=== PATIENT | male | born 2000 | race Caucasian/White ===

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

== ENCOUNTER 2019-03-05 07:10 | Emergency (ER) | payer MEDICAID ==
[2019-03-05 07:41] VITALS: BP 123/71
[2019-03-05] MEDS ORDERED: FLUCONAZOLE 100 MG TABLET PO STA (07:57)
[2019-03-05] MEDS ORDERED: IBUPROFEN 600 MG TABLET PO STA (07:57)
[2019-03-05] MEDS ORDERED: DOXYCYCLINE 100 MG TABLET PO STA (07:57)
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
== END 2019-03-05 08:34 | disposition home or self-care (01) ==
LOC: ED 07:10
DX: L02.211 Cutaneous abscess of abdominal wall (principal); B35.3 Tinea pedis; M79.671 Pain in right foot; M79.672 Pain in left foot; F17.200 Nicotine dependence, unspecified, uncomplicated
CPT/HCPCS: 99283; A9270

== ENCOUNTER 2019-04-21 21:12 | Emergency (ER) | payer MEDICAID ==
[2019-04-21 21:23] VITALS: BP 120/71
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
== END 2019-04-21 21:59 | disposition home or self-care (01) ==
LOC: ED 21:12
DX: S01.111A Laceration without foreign body of right eyelid and periocular area, initial encounter (principal); W50.0XXA Accidental hit or strike by another person, initial encounter; Y93.75 Activity, martial arts; F17.200 Nicotine dependence, unspecified, uncomplicated
CPT/HCPCS: 12013; 99282

== ENCOUNTER 2019-06-11 11:53 | Emergency (ER) | payer MEDICAID ==
[2019-06-11 12:03] VITALS: BP 142/78
--- NOTE | 2019-06-11 12:30 | ED Physician Documentation ---
PD HPI DYSPNEA - Stated complaint Stated Complaint: SOA/L SIDE PAIN - Chief complaint Chief Complaint: Resp - History obtained from History obtained from: Patient (This is a healthy 19-year-old gentleman who smokes cigarettes. He was shoveling and mid shovel at 10 AM this morning when he developed left-sided upper chest pain and trouble breathing present at rest but worse with ambulation. No history of pneumothorax, DVT or PE. No recent travel, no leg pain or swelling. He had a cough a couple of days ago but that cleared up.) Review of Systems Constitutional: denies: Fever, Chills Nose: denies: Rhinorrhea / runny nose, Congestion Throat: denies: Sore throat Cardiac: reports: Chest pain / pressure. denies: Palpitations, Pedal edema, Calf pain Respiratory: reports: Dyspnea. denies: Cough, Hemoptysis, Wheezing GI: denies: Abdominal Pain PD PAST MEDICAL HISTORY - Past Medical History Cardiovascular: None Respiratory: None Neuro: None Endocrine/Autoimmune: None GI: None : None HEENT: None Psych: None Musculoskeletal: None Derm: None - Past Surgical History Past Surgical History: Yes General: Other HEENT: Myringotomy (tubes), Tonsil/Adenoidectomy - Present Medications Home Medications: Ambulatory Orders Medication Instructions Recorded Confirmed Clotrimazole/Betamethasone Dip 1 applic TP BID #15 cream..g. 03/05/19 [Lotrisone Cream] Fluconazole [Diflucan] 150 mg PO ONCE #2 tablet 03/05/19 RX: Doxycycline Hyclate 100 mg PO BID #14 capsule 03/05/19 RX: Mupirocin 1 applic TP TID #15 g 03/05/19 RX: Naproxen 500 mg PO BID #20 tablet 03/05/19 RX: Tramadol HCl 50 mg PO Q6H PRN #15 tablet 03/05/19 - Allergies Allergies/Adverse Reactions: Allergies Allergy/AdvReac Type Severity Reaction Status Date / Time Penicillins Allergy Unknown Verified 06/11/19 12:00 - Social History Does the pt smoke?: Yes Smoking Status: Current every day smoker Does the pt drink ETOH?: No Does the pt have substance abuse?: No - Immunizations Immunizations are current?: Yes - POLST Patient has POLST: No PD ED PE NORMAL - Vitals Vital signs reviewed: Yes - General General: Alert and oriented X 3, No acute distress - HEENT HEENT: Pharynx benign - Neck Neck: Supple, no meningeal sign, No bony TTP - Cardiac Cardiac: RRR, No murmur - Respiratory Respiratory: No respiratory distress, Clear bilaterally - Abdomen Abdomen: Non tender - Extremities Extremities: No edema, No calf tenderness / cord - Neuro Neuro: Alert and oriented X 3, Normal speech Results - Vitals Vitals: Vital Signs - 24 hr 06/11/19 12:00 Temperature 36.9 C Heart Rate 86 Respiratory 15 Rate Blood Pressure 142/78 H O2 Saturation 100 Oxygen O2 Source Room air - EKG (time done) 1206 Rate: Rate (enter#) (84) Rhythm: NSR [place]: Normal Intervals: Normal UT QRS: Normal Ischemia: Normal ST segments Computer interpretation: Agree with computer - Labs Labs: Laboratory Tests 06/11/19 06/11/19 06/11/19 13:00 13:00 13:00 WBC 6.5 RBC 4.77 Hgb 14.5 Hct 43.7 MCV 91.6 MCH 30.4 MCHC 33.2 RDW 12.8 Plt Count 167 MPV 11.5 H Neut # (Auto) 4.1 Lymph # (Auto) 1.6 [place] # (Auto) 0.5 Eos # (Auto) 0.2 Baso # (Auto) 0.0 Absolute Nucleated RBC 0.00 Nucleated RBC % 0.0 Sodium 139 Potassium 3.6 Chloride 106 Carbon Dioxide 26 Anion Gap 7.0 BUN 14 Creatinine 0.9 Estimated GFR (MDRD) 108 Glucose 99 Calcium 9.2 Total Bilirubin 0.4 AST 21 ALT 27 Alkaline Phosphatase 64 Troponin I High Sens < 2.3 L Total Protein 7.4 Albumin 4.7 Globulin 2.7 Albumin/Globulin Ratio 1.7 Lipase 23 - Rads (name of study) 2v chest Radiology: EMP read contemporaneously (normal) PD MEDICAL DECISION MAKING - ED course ED course: I considered pulmonary embolism in this patient. Clinically the pretest probability of pulmonary embolism is less than 15%. I applied to the PERC rules as follows: The patient's age is under 50, heart rate less than 100, oxygen saturation greater than 94%, the patient does not have a history of DVT or PE. Patient has no recent trauma or surgery. The patient has no hemoptysis. The patient is not on exogenous estrogens. The patient does not have clinical signs suggesting DVT. As such the patient ruled out for pulmonary embolism by PERC criteria. Given his age and activity what it started pneumothorax was highly considered but there is no evidence of this clinically or radiographically. Departure - Departure Disposition: 01 Home, Self Care Clinical Impression: Strain of chest wall, Dyspnea Condition: Good Record reviewed to determine appropriate education?: Yes Instructions: ED Dyspnea Shortness of Breath, ED Smoking Cessation Comments: Return for new or worsening symptoms. Take it easy the rest of the day. Follow-up with your doctor next week. Forms: Activity restrictions Discharge Date/Time: 06/11/19 13:34
[2019-06-11] MEDS ORDERED: IBUPROFEN 800 MG TABLET PO STA (12:48)
[2019-06-11 13:09] LABS: BASOPHILS % (AUTO) 0.5 %; EOSINOPHILS # (AUTO) 0.2 10^3/uL (0.0-0.7); EOSINOPHILS % (AUTO) 2.8 %; HGB - HEMOGLOBIN 14.5 g/dL (14.0-18.0); LYMPHOCYTES # (AUTO) 1.6 10^3/uL (1.5-3.5); LYMPHOCYTES % (AUTO) 25.2 %; MEAN CORPUSCULAR HEMOGLOBIN 30.4 pg (27.0-31.0); MEAN CORPUSCULAR HGB CONC 33.2 g/dL (32.0-36.0); MEAN CORPUSCULAR VOLUME 91.6 fL (80.0-94.0); MEAN PLATELET VOLUME 11.5 fL (7.4-11.4); MONOCYTES # (AUTO) 0.5 10^3/uL (0.0-1.0); NEUTROPHILS # (AUTO) 4.1 10^3/uL (1.5-6.6); NEUTROPHILS % (AUTO) 63.9 %; PLT - PLATELET COUNT 167 10^3/uL (130-450); RED BLOOD COUNT 4.77 10^6/uL (4.70-6.10); RED CELL DISTRIBUTION WIDTH 12.8 % (12.0-15.0); WHITE BLOOD COUNT 6.5 x10^3/uL (4.8-10.8)
[2019-06-11 13:22] LABS: ALBUMIN 4.7 g/dL (3.2-5.5); ALBUMIN/GLOBULIN RATIO 1.7 (1.0-2.2); BILIRUBIN,TOTAL 0.4 mg/dL (0.2-1.0); CALCIUM 9.2 mg/dL (8.5-10.3); CREATININE 0.9 mg/dL (0.6-1.2); TOTAL PROTEIN 7.4 g/dL (6.7-8.2)
--- NOTE | 2019-06-11 13:22 | XRAY Report ---
Reason: dyspnea Procedure Date: 06/11/2019 Accession Number: [id number] / [id number] Procedure: XR - Chest 2 View X-Ray CPT Code: 14573 FULL RESULT: EXAM: CHEST RADIOGRAPHY EXAM DATE: 06/11/2019 12:44 PM. CLINICAL HISTORY: Dyspnea. Chest pain and shortness of breath today. COMPARISON: None. TECHNIQUE: 2 views. FINDINGS: Lungs/Pleura: No focal opacities evident. No pleural effusion. No pneumothorax. Normal volumes. Mediastinum: Heart and mediastinal contours are unremarkable. Other: None. IMPRESSION: Normal 2-view chest radiography. [facility]
== END 2019-06-11 13:34 | disposition home or self-care (01) ==
LOC: ED 11:53
DX: S29.011A Strain of muscle and tendon of front wall of thorax, initial encounter (principal); X50.9XXA Other and unspecified overexertion or strenuous movements or postures, initial encounter; Y93.H1 Activity, digging, shoveling and raking; R06.00 Dyspnea, unspecified; F17.210 Nicotine dependence, cigarettes, uncomplicated
CPT/HCPCS: 36415; 71046; 80053; 83690; 84484; 85025; 93005; 99283; 99284; A9270